=== PATIENT | male | born 1995 | race Two or more races ===

== ENCOUNTER 2018-12-07 22:23 | Emergency (ER) | payer MEDICAID ==
[~2018-12-07] VITALS: Ht 175.3 cm; Wt 65.8 kg
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
[2018-12-07] MEDS ORDERED: Neosporin Oint Ud Pkt TOPIC ONE (23:30)
[2018-12-08] MEDS ORDERED: IBUPROFEN600 MG ORAL (00:51)
[2018-12-08] MEDS ORDERED: METHOCARBAMOL500 MG ORAL (00:51)
[2018-12-08 01:00] VITALS: BP 124/62
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
== END 2018-12-08 00:50 | disposition home or self-care (01) ==
LOC: EMR 22:46
DX: S83.421A Sprain of lateral collateral ligament of right knee, initial encounter (principal); S80.02XA Contusion of left knee, initial encounter; S13.4XXA Sprain of ligaments of cervical spine, initial encounter; S20.212A Contusion of left front wall of thorax, initial encounter; F17.200 Nicotine dependence, unspecified, uncomplicated; V43.52XA Car driver injured in collision with other type car in traffic accident, initial encounter; Y92.410 Unspecified street and highway as the place of occurrence of the external cause
CPT/HCPCS: 99283